=== PATIENT | male | born 1985 | race Caucasian/White ===

== ENCOUNTER 2023-07-17 04:30 | Emergency (ER) | payer SELFPAY ==
[2023-07-17 04:42] VITALS: BP 137/89; PULSE 100; RESP 16; TEMP 36.8; O2SAT 99; BMI 27.9
--- NOTE | 2023-07-17 05:03 | DI.RAD.S_ITS ---
PROCEDURE: XR CHEST 2V INDICATIONS: COUGH X 2 WKS TECHNIQUE: 2 views of the chest were acquired. COMPARISON: None. FINDINGS: Surgical changes and devices: None. Lungs and pleura: Lungs are clear. No pleural effusions or pneumothorax. Mediastinum: Mediastinal contours are normal. Heart size is normal. Bones and chest wall: No suspicious bony abnormalities. Soft tissues appear unremarkable. IMPRESSION: No acute pulmonary process. Dictated by: Trina Hassan M.D. on 07/17/2023 at 8:21 Approved by: Trina Hassan M.D. on 07/17/2023 at 8:21
[2023-07-17] MEDS: DEXAMETHASONE 10 MG/ML VIAL PO (05:13)
--- NOTE | 2023-07-17 05:21 | ED.URI ---
HPI - URI/Sore Throat General Chief Complaint: Shortness of Breath/Dyspnea Stated Complaint: cough 2wks, resp infection? Time Seen by Provider: 07/17/23 04:35 Source: patient Mode of arrival: Ambulatory History of Present Illness HPI Narrative: 38-year-old male presents for cough x2 weeks. Has been attempting [id number] cough and cold medications without relief. Here with significant other who has similar symptoms. Related Data Previous Rx's Medication Instructions Recorded benzonatate 200 mg capsule 200 mg PO TID PRN cough #60 caps 07/17/23 Allergies Allergy/AdvReac Type Severity Reaction Status Date / Time No Known Drug Allergies Allergy Verified 07/17/23 05:09 Review of Systems Review of Systems Narrative: Otherwise negative Patient History Social History Smoking Status: Current every day smoker Smoking Status: Current every day smoker alcohol intake frequency: 0-2 drinks per day Substance Use Type: marijuana Exam Initial Vital Signs Initial Vital Signs: Vital Signs Temperature 98.3 F 07/17/23 04:42 Pulse Rate 100 H 07/17/23 04:42 Respiratory Rate 16 07/17/23 04:42 Blood Pressure 137/89 07/17/23 04:42 Pulse Oximetry 99 07/17/23 04:42 Oxygen Delivery Method Room Air 07/17/23 04:42 Const: Awake, alert, no acute distress, nontoxic appearing Cardiac: regular rate, regular rhythm RESP: unlabored, clear bilaterally, no wheezing GI: Atraumatic, soft, nontender, nondistended, no rebound, no guarding Skin: Warm, Dry, intact, no rashes Neuro: AO x3, CN II-XII grossly intact, moves all extremities Psych: affect normal, mood normal, not suicidal, not homicidal Course Orders Ordered: ED Orders 07/17/23 05:03 Chest [XR chest 2V] Stat Discontinued Medications Dexamethasone (Dexamethasone 10 Mg/Ml Vial) 10 mg PO NOW ONE Stop: 07/17/23 05:06 Last Admin: 07/17/23 05:13 Dose: 10 mg Documented By: MANDIE Vital Signs Vital signs: Vital Signs - 8 hr 07/17/23 04:42 Temperature 98.3 F Pulse Rate 100 H Respiratory Rate 16 Blood Pressure 137/89 Pulse Oximetry 99 Oxygen Delivery Method Room Air MDM - URI/Sore Throat MDM Narrative Medical decision making narrative: Well-appearing patient with 2 weeks of symptoms. Lungs are clear to auscultation bilaterally, saturating well on room air. Chest x-ray negative for acute findings. Cough medication sent to pharmacy of choice. Supportive measures counseled for home. Discharge Plan Departure Patient Disposition: Home Clinical Impression: Bronchitis Instructions: DI for Acute Bronchitis Prescriptions: New benzonatate 200 mg capsule 200 mg PO TID PRN (Reason: cough) Qty: 60 0RF Stand Alone Forms: Patient Portal/API
== END 2023-07-17 06:20 | disposition home or self-care (01) ==
PROVIDERS: Emergency Provider Emergency Medicine
DX: J40 Bronchitis, not specified as acute or chronic (principal); F17.200 Nicotine dependence, unspecified, uncomplicated
CPT/HCPCS: 71046; 99283; J1100